=== PATIENT | male | born 1960 | race African-American/Black ===

== ENCOUNTER → 2018-05-25 | Outpatient (CLI) | payer BC ==
[2015-05-06 22:59] VITALS: BP 165/99
[~2018-05-25] MED LIST: OLME20TA17 PO
--- NOTE | 2018-05-25 13:30 | RAD ---
EXAM: Abdomen and pelvis CT without intravenous contrast. HISTORY: Right flank pain. TECHNIQUE: Computed tomographic images of the abdomen and pelvis were obtained without contrast. Multiplanar reformatting was performed. *One or more of the following individualized dose reduction techniques were utilized for this examination: 1. Automated exposure control. 2. Adjustment of the mA and/or kV according to patient size. 3. Use of iterative reconstruction technique. COMPARISON: None. FINDINGS: Evaluation of the lower thorax demonstrates posterior dependent atelectasis. There is a suspected tiny cyst within the anterior right hepatic lobe. No suspicious hepatic lesion is seen. The gallbladder, pancreas, spleen and adrenal glands is unremarkable. There is a 1 mm nonobstructing stone within the lower pole of the left kidney. There is minimal nonspecific bilateral perinephric stranding. The right renal collecting system is slightly prominent. However, there is no evidence of obstructive uropathy. The appendix is normal in caliber. No abnormally thickened or dilated loop of bowel is seen. There is distal colonic diverticulosis. There is no evidence of diverticulitis. The bladder is nearly empty. The aorta is normal in caliber. There is no lymphadenopathy. There are few benign bone islands. There is no suspicious osseous lesion. IMPRESSION: 1. No acute abdominal or pelvic finding. 2. 1 mm nonobstructing left renal stone. 3. Colonic diverticulosis. Electronically signed by: Delmy Desai MD (05/25/2018 1:26 PM) [place] [id number]
== END | disposition home or self-care (01) ==
LOC: CT 12:50
PROVIDERS: ATTEND Family Medicine
DX: N20.0 Calculus of kidney (principal); K57.30 Diverticulosis of large intestine without perforation or abscess without bleeding; J98.11 Atelectasis
CPT/HCPCS: 74176

== ENCOUNTER → 2019-08-06 | Outpatient (CLI) | payer BC ==
[2015-05-06 22:59] VITALS: BP 165/99
[2019-08-06 09:13] LABS: BILIRUBIN,URINE NEG (NEG); CLARITY,URINE CLEAR; COLOR,URINE YELLOW; GLUCOSE,URINE NEG (NEG); NITRITE,URINE NEG (NEG); UROBILINOGEN,URINE 0.2 mg/dL (0.2 mg/dL)
== END | disposition home or self-care (01) ==
LOC: LAB 08:35
PROVIDERS: ATTEND Physician Assistant
DX: R30.9 Painful micturition, unspecified (principal)
CPT/HCPCS: 81003

== ENCOUNTER 2020-02-14 06:01 | Emergency (ER) | payer BC ==
[~2020-02-14] VITALS: Ht 185.4 cm; Wt 86.0 kg
[2020-02-14] MEDS ORDERED: IV NORMAL SALINE 1,000ML 1,000 ML IV SCH (06:32)
[2020-02-14] MEDS ORDERED: CONTRAST GIVEN. MC PRN (06:45)
[2020-02-14 06:47] LABS: BASO # 0.1 x10^3/uL (0.0-0.2); BASO % 1 % (0-3); EOS # 0.1 x10^3/uL (0.0-0.7); EOS % 1 % (0-3); HEMATOCRIT 44.9 % (39.0-53.0); HEMOGLOBIN 14.8 g/dL (13.0-17.5); LYMPH # 1.1 x10^3/uL (1.0-4.8); LYMPH % 11 % (24-48); MEAN CORPUSCULAR HEMOGLOBIN 30 pg (25-35); MEAN CORPUSCULAR HGB CONC 33 g/dL (31-37); MEAN CORPUSCULAR VOLUME 90 fL (79-100); MONO # 0.5 x10^3/uL (0.0-1.1); MONO % 5 % (0-9); NEUT # 8.2 x10^3uL (1.8-7.7); NEUT % 82 % (31-73); PLATELET COUNT 175 x10^3/uL (140-400); RED BLOOD COUNT 4.97 x10^6/uL (4.30-5.70); RED CELL DISTRIBUTION WIDTH 14.2 % (11.5-14.5)
[2020-02-14 06:57] LABS: CALCIUM 9.5 mg/dL (8.5-10.1); CREATININE 1.3 mg/dL (0.7-1.3); GFR 68.1; POTASSIUM 4.1 mmol/L (3.5-5.1)
--- NOTE | 2020-02-14 06:59 | EKG ---
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
[2020-02-14] MEDS ORDERED: LIDO:MAALOX 1:1 20 ML SINGLE DOSE. PO ONE (07:00)
[2020-02-14] MEDS ORDERED: IOHEXOL 300 MG/ML 75 ML VIAL. IV ONE (07:00)
[2020-02-14 07:04] LABS: ALBUMIN 3.9 g/dL (3.4-5.0); DIRECT BILIRUBIN 0.1 mg/dL (0.0-0.2); TOTAL BILIRUBIN 0.3 mg/dL (0.2-1.0); TOTAL PROTEIN 7.4 g/dL (6.4-8.2)
--- NOTE | 2020-02-14 07:13 | PHYS DOC ---
Past History Past Medical History: Hypertension, Other Additional Past Medical Histor: prostate cancer Past Surgical History: Other Additional Past Surgical Histo: prostectomy Alcohol Use: Rarely Drug Use: None General Adult EDM: Chief Complaint: GI PROBLEM HPI: HPI: 59-year-old male past medical history significant for hypertension, prostate cancer with prostatectomy approximately 10 years ago (in remission) and osteoarthritis of left shoulder, presents to the ED with complaints of diffuse abdominal pain stating " I feel like I have a blockage in my intestines" that started around 1 AM last night immediately after eating ice cream. Patient states he did eat greasy iram greens earlier in the night. No relief with Colace, Pepto-Bismol and milk of magnesia. Did have 1 regular bowel movement and frequent belching (brown color) at onset of pain. Reports associated diffuse bloating and abdominal distention-states "my abs are usually flat and tight and they're sticking out now." Abdominal pain initially located around umbilicus but is now diffuse, pain is not a severe at initial presentation. Past surgical history of exploratory laparotomy at 11 years of age due to gastric ulcer-does not recall any history of blood transfusions. Review of Systems: Review of Systems: Constitutional: Denies fever or chills Eyes: Denies change in visual acuity HENT: Denies nasal congestion or sore throat Respiratory: Denies cough or shortness of breath or hemoptysis Cardiovascular: Denies chest pain or edema GI: Denies nausea, vomiting, bloody stools or diarrhea, melena, hematochezia, hematemesis : Denies dysuria or hematuria Musculoskeletal: Denies back pain or joint pain Integument: Denies rash Neurologic: Denies headache, focal weakness or sensory changes or neck stiffness Endocrine: Denies polyuria or polydipsia Lymphatic: Denies swollen glands Psychiatric: Denies depression or anxiety Heart Score: Risk Factors: Risk Factors: DM, Current or recent (<one month) smoker, HTN, HLP, family history of CAD, obesity. Risk Scores: Score 0 - 3: 2.5% MACE over next 6 weeks - Discharge Home Score 4 - 6: 20.3% MACE over next 6 weeks - Admit for Clinical Observation Score 7 - 10: 72.7% MACE over next 6 weeks - Early Invasive Strategies Current Medications: Current Meds: Current Medications Medications (Trade) Dose Ordered Sig/Deja Start Time Stop Time Status Last Admin Dose Admin Info (Do NOT chart on this entry -- for MONITORING) 1 each PRN DAILY PRN 02/14/20 06:45 02/16/20 06:44 Iohexol (Omnipaque 300 Mg/ml) 75 ml 1X ONCE 02/14/20 07:00 02/14/20 07:01 DC Multi-Ingredient Mouthwash/Gargle (Gi Cocktail) 20 ml 1X ONCE 02/14/20 07:00 02/14/20 07:01 DC 02/14/20 06:58 20 ML Sodium Chloride 1,000 ml @ 1,000 mls/hr Q1H 02/14/20 06:32 02/14/20 07:31 02/14/20 06:58 1,000 MLS/HR Allergies: Allergies: Allergies Coded Allergies Type Severity Reaction Last Updated Verified No Known Drug Allergies 05/06/15 No Physical Exam: PE: Constitutional: Well developed, well nourished, physically fit/tall AA male, non-toxic appearance. [] HENT: Normocephalic, atraumatic, bilateral external ears normal, oropharynx moist, no oral exudates, nose normal. [] Eyes: EOMI, conjunctiva normal, no discharge. [] Neck: Normal range of motion, supple, n Cardiovascular:Heart rate regular rhythm, no murmur [] Lungs & Thorax: Bilateral breath sounds clear to auscultation [] Abdomen: Bowel sounds hyperactive, large vertical abdominal scar, patient more tender in left lower quadrant and left upper quadrant, well defined abdominal muscles, slight distention, no Murphsy sign, no pain at McBurney's point, soft, no masses, no pulsatile masses. [] Skin: Warm, dry, no erythema, no rash. [] Back: No tenderness, no CVA tenderness. [] Extremities: No tenderness, no cyanosis, no clubbing, ROM intact, no edema. [] Neurologic: Alert and oriented X 3, normal motor function, normal sensory function, no focal deficits noted. [] Psychologic: Affect normal, judgement normal, mood normal. [] Current Patient Data: Labs: Laboratory Tests Test 02/14/20 06:30 White Blood Count 10.0 x10^3/uL (4.0-11.0) Red Blood Count 4.97 x10^6/uL (4.30-5.70) Hemoglobin 14.8 g/dL (13.0-17.5) Hematocrit 44.9 % (39.0-53.0) Mean Corpuscular Volume 90 fL (79-100) Mean Corpuscular Hemoglobin 30 pg (25-35) Mean Corpuscular Hemoglobin Concent 33 g/dL (31-37) Red Cell Distribution Width 14.2 % (11.5-14.5) Platelet Count 175 x10^3/uL (140-400) Neutrophils (%) (Auto) 82 % (31-73) H Lymphocytes (%) (Auto) 11 % (24-48) L Monocytes (%) (Auto) 5 % (0-9) Eosinophils (%) (Auto) 1 % (0-3) Basophils (%) (Auto) 1 % (0-3) Neutrophils # (Auto) 8.2 x10^3uL (1.8-7.7) H Lymphocytes # (Auto) 1.1 x10^3/uL (1.0-4.8) Monocytes # (Auto) 0.5 x10^3/uL (0.0-1.1) Eosinophils # (Auto) 0.1 x10^3/uL (0.0-0.7) Basophils # (Auto) 0.1 x10^3/uL (0.0-0.2) Sodium Level 138 mmol/L (136-145) Potassium Level 4.1 mmol/L (3.5-5.1) Chloride Level 103 mmol/L (98-107) Carbon Dioxide Level 25 mmol/L (21-32) Anion Gap 10 (6-14) Blood Urea Nitrogen 33 mg/dL (8-26) H Creatinine 1.3 mg/dL (0.7-1.3) Estimated GFR (Cockcroft-Gault) 68.1 Glucose Level 179 mg/dL (70-99) H Calcium Level 9.5 mg/dL (8.5-10.1) Total Bilirubin Pending Direct Bilirubin Pending Aspartate Amino Transferase (AST) Pending Alanine Aminotransferase (ALT) Pending Alkaline Phosphatase Pending Creatine Kinase Pending Total Protein Pending Albumin Pending Lipase Pending Vital Signs: Vital Signs Date Time Temp Pulse Resp B/P (MAP) Pulse Ox O2 Delivery O2 Flow Rate FiO2 02/14/20 06:05 97.7 91 18 162/102 (122) 96 Room Air EKG: EKG: Sinus rhythm at 88 bpm, no axis deviation, normal intervals, no T wave inversions, no ST elevations or ST depressions Radiology/Procedures: Radiology/Procedures: IMAGING REPORT Signed PATIENT: APPLE CARROLL ACCOUNT: [id number] : 1960 LOCATION: ER AGE: 59 SEX: M EXAM STATUS: REG ER ORD. PHYSICIAN: KARLO MEZA DO REASON: periumbilical abd pain, constipation, diarrhea, bloating PROCEDURE: CT ABD PELV W/ IV CONTRST ONLY EXAM: CT Abdomen and Pelvis with IV contrast INDICATION: Reason: periumbilical abd pain, constipation, diarrhea, bloating / Spl. Instructions: GFR 59/ CREAT 1.3- reduced dose to 60ml Omni 300 / History: TECHNIQUE: Multi-detector row CT images were acquired from the lung bases through the abdomen and pelvis with the use of IV contrast. Sagittal and coronal images were acquired from the transaxial data. All CT scans performed at this facility utilize dose optimization techniques as appropriate to the exam, including the following: Automated exposure control and adjustment of the mA and/or KV according to patient size (this includes techniques or standardized protocols for targeted exams where dose is indication/reason for exam). IV CONTRAST: Administered ORAL CONTRAST: Not administered COMPARISON: 05/25/[address] without IV contrast FINDINGS: LOWER CHEST: Unremarkable LIVER: Unremarkable BILIARY SYSTEM: Gallbladder is unremarkable. Bile ducts are not dilated. PANCREAS: Unremarkable SPLEEN: Unremarkable ADRENALS: Unremarkable KIDNEYS & URETERS: Unremarkable BLADDER: Unremarkable REPRODUCTIVE ORGANS: Surgical changes from prostatectomy are redemonstrated. There is suggestion of a small right hydrocele that is new in the interval. GASTROINTESTINAL: No findings of bowel perforation or acute inflammation. There is fluid within multiple loops of small bowel which appear nondistended as well as fluid throughout the visualized large bowel. Scattered colonic diverticuli are present without findings of acute diverticulitis. No obvious findings of obstruction. The appendix is normal. MESENTERY/PERITONEUM/RETROPERITONEUM: Unremarkable VASCULAR: Unremarkable LYMPH NODES: No adenopathy OSSEOUS & SOFT TISSUES: Unremarkable IMPRESSION: Fluid-filled bowel loops in a pattern suggesting an enteritis. No findings suspicious for bowel obstruction, perforation or acute inflammation. No findings of acute appendicitis. Electronically signed by: Reid Trejo MD (02/14/2020 8:12 AM) [id number] Course & Med Decision Making: Course & Med Decision Making Pertinent Labs and Imaging studies reviewed. (See chart for details) CT concerning for fluid-filled nondistended bowel loops, likely resembling enter itis. No signs of appendicitis or bowel obstruction. Vascular unremarkable. New small right hydrocele (pt with no pain). Patient afebrile with asymptomatic hypertension -troponin negative. Has no active chest pain, difficulties breathing or confusion. CK and glucose are elevated. Normal renal function. No leukocytosis. Normal lipase. Patient was treated with IV fluids and GI cocktail in the ED and states his pain has improved since initial onset. Patient with no active vomiting or diarrhea. Discussed findings with pt - educated he will need to repeat his glucose with pmd. Will give referral to GI is sxs should persist. Strict ED return precautions were given for severe or worsening abdominal pain (obstructive sxs), bloody stools, syncope, dehydration or fever. Will treat conservatively with [id number] analgesia, rest and oral hydration. Encouraged urgent outpatient follow-up with PMD and GI. Life- threatening processes were considered but are low suspicion at this time, given history and physical exam. Pt was educated on all prescription medications and adverse effects. All patient's questions were answered and pt was stable at time of discharge. Differential includes aortic dissection, aortic aneurysm, acute coronary syndrome, surgical abdomen (appendicitis, cholecystitis, ischemic bowel, strangulated hernia, etc), bowel obstruction or volvulus, bladder outlet ob struction, gastrointestinal bleeding, inflammatory bowel disease, peptic ulcer disease, sepsis, diverticular disease, ureterolithiasis, nephrolithiasis, testicular torsion, infection I spoken with the patient and her caregivers. I explained the patient's condition, diagnoses and treatment plan based on the information available to me at this time. I have answered the patient and her caregiver's questions and addressed any concerns. The patient and her caregivers have a good understanding of patient's diagnosis, condition and treatment plan as can be expected at this point. Vital signs have been stable. Patient's condition is stable and appropriate for discharge from the emergency department. Patient will pursue further outpatient evaluation with primary care physician or other designated or consulting physician as outlined in the discharge instructions. The patient and/or caregivers are agreeable to this plan of care and follow-up instructions have been explained in detail. The patient and/or caregivers have received these instructions in written form and have expressed an understanding of the discharge instructions. The patient and/or caregivers are aware that any significant change of condition or worsening of symptoms should prompt immediate return to this or the closest emergency department or call to 911. Amara Disclaimer: Amara Disclaimer: This electronic medical record was generated, in whole or in part, using a voice recognition dictation system. Departure Departure: Impression: Primary Impression: Abdominal pain Additional Impression: Enteritis Disposition: HOME/RESIDENCE PRIOR TO ADM Condition: STABLE Referrals: BOB RODRIGUEZ (PCP) Patient Instructions: Abdominal Pain, Diverticulosis Additional Instructions: [address], [address], [facility] -in 1-2 [place] [address] EMERGENCY DEPARTMENT GENERAL DISCHARGE INSTRUCTIONS Thank you for coming to [facility] (ED) today and trusting us with you care. We trust that you had a positivie experience in our Emergency Department. If you wish to speak to the department management, you may call the director at [phone]. YOUR FOLLOW UP INSTRUCTIONS ARE FOLLOWS: 1. Do you have a private Doctor? If you do not have a private doctor, please ask for a resource list of physicians or clinics that may be able to assist you with follow up care. 2. The Emergency Physician has interpreted your x-rays. The X-Ray specialist will also review them. If there is a change in the findings, you will be notified in 48 hours when at all possible. 3. A lab test or culture has been done, your results will be reviewed and you will be notified if you need a change in treatment. ADDITIONAL INSTRUCTIONS AND INFORMATION: 1. Your care today has been supervised by a physician who is specially trained in emergency care. Many problems require more than one evaluation for a complete diagnosis and treatment. We recommend that you schedule your follow up appointment as recomme nded to ensure complete treatment of you illness or injury. If you are unable to obtain follow up care and continue to have a problem, or if your condition worsens, we recommend that you return to the ED. 2. We are not able to safely determine your condition over the phone nor are we able to give sound medical advice over the phone. For these safety reasons, if you call for medical advice we will ask you to come to the ED for further evaluation. 3. If you have any questions regarding these discharge instructions please call the ED at [phone]. SAFETY INFORMATION: In the interest of safety, wellness, and injury prevention; we encourage you to wear your sealbelt, if you smoke; quite smoking, and we encourage family to use a protective helmet for bicycling and other sporting events that present an increased risk for head injury. IF YOUR SYMPTOMS WORSEN OR NEW SYMPTOMS DEVELOP, OR YOU HAVE CONCERNS ABOUT YOUR CONDITION; OR IF YOUR CONDITION WORSENS WHILE YOU ARE WAITING FOR YOUR FOLLOW UP APPOINTMENT; EITHER CONTACT YOUR PRIMARY CARE DOCTOR, THE PHYSICIAN WHOSE NAME AND NUMBER YOU WERE GIVEN, OR RETURN TO THE ED IMMEDIATELY. Scripts Simethicone (Simethicone) 125 Mg Capsule 125 MG PO QID for gas/bloating for 4 Days, #16 CAP Prov: KARLO MEZA DO 02/14/20 Justification of Admission: Justification of Admission: Justification of Admission Dx: N/A KARLO MEZA DO Feb 14, 2020 07:13
--- NOTE | 2020-02-14 08:15 | RAD ---
EXAM: CT Abdomen and Pelvis with IV contrast INDICATION: Reason: periumbilical abd pain, constipation, diarrhea, bloating / Spl. Instructions: GFR 59/ CREAT 1.3- reduced dose to 60ml Omni 300 / History: TECHNIQUE: Multi-detector row CT images were acquired from the lung bases through the abdomen and pelvis with the use of IV contrast. Sagittal and coronal images were acquired from the transaxial data. All CT scans performed at this facility utilize dose optimization techniques as appropriate to the exam, including the following: Automated exposure control and adjustment of the mA and/or KV according to patient size (this includes techniques or standardized protocols for targeted exams where dose is indication/reason for exam). IV CONTRAST: Administered ORAL CONTRAST: Not administered COMPARISON: 05/25/[address] without IV contrast FINDINGS: LOWER CHEST: Unremarkable LIVER: Unremarkable BILIARY SYSTEM: Gallbladder is unremarkable. Bile ducts are not dilated. PANCREAS: Unremarkable SPLEEN: Unremarkable ADRENALS: Unremarkable KIDNEYS & URETERS: Unremarkable BLADDER: Unremarkable REPRODUCTIVE ORGANS: Surgical changes from prostatectomy are redemonstrated. There is suggestion of a small right hydrocele that is new in the interval. GASTROINTESTINAL: No findings of bowel perforation or acute inflammation. There is fluid within multiple loops of small bowel which appear nondistended as well as fluid throughout the visualized large bowel. Scattered colonic diverticuli are present without findings of acute diverticulitis. No obvious findings of obstruction. The appendix is normal. MESENTERY/PERITONEUM/RETROPERITONEUM: Unremarkable VASCULAR: Unremarkable LYMPH NODES: No adenopathy OSSEOUS & SOFT TISSUES: Unremarkable IMPRESSION: Fluid-filled bowel loops in a pattern suggesting an enteritis. No findings suspicious for bowel obstruction, perforation or acute inflammation. No findings of acute appendicitis. Electronically signed by: Reid Trejo MD (02/14/2020 8:12 AM) [id number]
[2020-02-14] MEDS ORDERED: SIME125C65 PO (08:50)
[2020-02-14 09:07] VITALS: BP 137/80
== END 2020-02-14 09:06 | disposition home or self-care (01) ==
LOC: ER 06:01
DX: K52.9 Noninfective gastroenteritis and colitis, unspecified (principal); I10 Essential (primary) hypertension; M19.012 Primary osteoarthritis, left shoulder; Z85.9 Personal history of malignant neoplasm, unspecified
CPT/HCPCS: 36415; 74177; 80048; 80076; 82550; 83690; 84484; 85025; 93005; 96360; 96361; 99285; J7030; Q9967

== ENCOUNTER → 2020-02-29 | Outpatient (CLI) | payer BC ==
[2020-02-14 09:07] VITALS: BP 137/80
[~2020-02-29] MED LIST changes: +SIME125C65 PO
--- NOTE | 2020-02-29 12:54 | RAD ---
EXAM: 3 Views Left Shoulder DATE: 02/29/2020 12:00 AM INDICATION: Left shoulder pain COMPARISON: 12/02/2013 FINDINGS: There is no evidence for acute fracture or dislocation. The left shoulder joint degenerative change with increased prominence of the inferior projecting glenohumeral osteophytes. Small joint body is suspected superiorly. Acromiohumeral distance is decreased suggesting rotator cuff tendinosis or tear. IMPRESSION: 1. No evidence for acute fracture or dislocation. 2. Progressing left humeral joint osteoarthritis. 3. High riding humeral head suggests rotator cuff tendinosis or tear. Electronically signed by: Eldon Shields MD (02/29/2020 12:50 PM) [id number]
== END ==
LOC: DXRAD 10:08
PROVIDERS: ATTEND Physician Assistant
DX: M19.012 Primary osteoarthritis, left shoulder (principal)
CPT/HCPCS: 73030

== ENCOUNTER → 2020-03-03 | Outpatient (CLI) | payer BC ==
[2020-02-14 09:07] VITALS: BP 137/80
--- NOTE | 2020-03-03 10:02 | RAD ---
Two-view left knee radiographs 03/03/2020 CLINICAL HISTORY: Left knee pain. AP and lateral digital radiographs of the left knee were obtained. No fracture or dislocation of the left knee is seen. Mild degenerative changes are seen involving the medial and patellofemoral compartments of the left knee. These consist of subchondral sclerosis and associated osteophyte formation. There may be a minimal left suprapatellar joint effusion. IMPRESSION: Mild degenerative changes are seen involving the left knee. No acute osseous abnormality is seen. Electronically signed by: Erlin Ruff MD (03/03/2020 9:59 AM) [id number]
== END ==
LOC: PMG 09:19
PROVIDERS: ATTEND Physician Assistant
DX: M17.12 Unilateral primary osteoarthritis, left knee (principal)
CPT/HCPCS: 73560

== ENCOUNTER → 2021-04-04 | Outpatient (CLI) | payer BC ==
--- NOTE | 2021-04-04 11:25 | RAD ---
EXAM: Cervical spine, 4 views. HISTORY: Pain. COMPARISON: None. FINDINGS: 4 views of the cervical spine are obtained. There is mild multilevel degenerative listhesis . There is endplate remodeling with disc space narrowing and osteophytosis at C3-C7. There is multile lisa facet arthropathy. There is a shoulder arthroplasty. IMPRESSION: Multilevel degenerative change of the cervical spine, described above. No acute osseous f inding. Electronically signed by: Delmy Desai MD (04/04/2021 11:23 AM) [id number]
== END ==
LOC: RAD 10:37
PROVIDERS: ATTEND Nurse Practitioner Family
DX: M47.812 Spondylosis without myelopathy or radiculopathy, cervical region (principal); M48.02 Spinal stenosis, cervical region; M48.8X2 Other specified spondylopathies, cervical region; M43.12 Spondylolisthesis, cervical region; M25.78 Osteophyte, vertebrae; Z98.890 Other specified postprocedural states
CPT/HCPCS: 72040

== ENCOUNTER 2021-09-22 01:22 | Emergency (ER) | payer BC ==
[~2021-09-22] VITALS: Ht 185.4 cm; Wt 86.0 kg
[2021-09-22 01:33] VITALS: BP 144/95
[2021-09-22] MEDS ORDERED: AMOX1TAB11 PO (01:48)
--- NOTE | 2021-09-22 01:48 | PHYS DOC ---
Past History Past Medical History: Hypertension, Other Additional Past Medical Histor: prostate cancer Past Surgical History: Other Additional Past Surgical Histo: prostectomy Alcohol Use: Rarely Drug Use: None General Adult EDM: Chief Complaint: DENTAL PROBLEM HPI: HPI: 61-year-old male presents with left foot for dental pain. The patient has been having worsening pain for couple of days. It has become sore to swallow and chew on that side. He feels like the gums inside of the teeth are almost sore. They feel swollen when he feels move his tongue. He has several days of 12-hour shifts coming up and thought he should come and certainly get worse. Patient does have an appointment with an oral surgeon on . He just wants to see if it is infected. Review of Systems: Review of Systems: Constitutional: Denies fever or chills Eyes: Denies change in visual acuity HENT: Left lower dental pain Respiratory: Denies cough or shortness of breath Cardiovascular: Denies chest pain or edema GI: Denies abdominal pain, nausea, vomiting, bloody stools or diarrhea : Denies dysuria Musculoskeletal: Denies back pain or joint pain Integument: Denies rash Neurologic: Denies headache, focal weakness or sensory changes Endocrine: Denies polyuria or polydipsia Lymphatic: Denies swollen glands Psychiatric: Denies depression or anxiety Allergies: Allergies: Allergies Coded Allergies Type Severity Reaction Last Updated Verified No Known Drug Allergies 05/06/15 No Physical Exam: PE: Constitutional: Well developed, well nourished, no acute distress, non-toxic appearance. [] HENT: Normocephalic, atraumatic, bilateral external ears normal, tenderness of the left, lower, medial gumline. No palpable abscess. [] Eyes: PERRLA, EOMI, conjunctiva normal, no discharge. [] Neck: Normal range of motion, no tenderness, supple, no stridor. [] Cardiovascular:Heart rate regular rhythm, no murmur [] Lungs & Thorax: Bilateral breath sounds clear to auscultation [] Abdomen: Bowel sounds normal, soft, no tenderness, no masses, no pulsatile masses. [] Skin: Warm, dry, no erythema, no rash. [] Back: No tenderness, no CVA tenderness. [] Extremities: No tenderness, no cyanosis, no clubbing, ROM intact, no edema. [] Neurologic: Alert and oriented X 3, normal motor function, normal sensory fun ction, no focal deficits noted. [] Psychologic: Affect normal, judgement normal, mood normal. [] Current Patient Data: Vital Signs: Vital Signs Date Time Temp Pulse Resp B/P (MAP) Pulse Ox O2 Delivery O2 Flow Rate FiO2 09/22/21 01:33 97.8 83 18 144/95 (111) 96 Room Air EKG: EKG: [] Radiology/Procedures: Radiology/Procedures: [] Heart Score: C/O Chest Pain: N/A Risk Factors: Risk Factors: DM, Current or recent (<one month) smoker, HTN, HLP, family history of CAD, obesity. Risk Scores: Score 0 - 3: 2.5% MACE over next 6 weeks - Discharge Home Score 4 - 6: 20.3% MACE over next 6 weeks - Admit for Clinical Observation Score 7 - 10: 72.7% MACE over next 6 weeks - Early Invasive Strategies Course & Med Decision Making: Course & Med Decision Making Pertinent Labs and Imaging studies reviewed. (See chart for details) The patient does not have a palpable, obvious abscess. Given his tenderness and history he could be developing dental infection. I will treat him with Augmentin for 7 days. He will keep his appointment with the oral surgeon. He is stable for discharge at this time. [] Amara Disclaimer: Amara Disclaimer: This electronic medical record was generated, in whole or in part, using a voice recognition dictation system. Departure Departure: Impression: Primary Impression: Dental infection Disposition: HOME / SELF CARE / HOMELESS Condition: STABLE Referrals: BOB RODRIGUEZ (PCP) Patient Instructions: Dental Pain, [id number] Scripts Amoxicillin/Potassium Clav (AMOX TR-K CLV 875-125 MG TAB) 1 Each Tablet 1 TAB PO BID for dental infection for 7 Days, #14 TAB Prov: LOUISA SAUER DO 09/22/21 LOUISA SAUER DO September 22, 2021 01:48
[2021-09-22] MEDS ORDERED: AMOXICILLIN/K CLAV 875/125MG TABLET. ONE (01:50)
[2021-09-22] MEDS ORDERED: AMOXICILLIN/K CLAV 875/125MG TABLET. PO ONE (02:00)
== END 2021-09-22 01:54 | disposition home or self-care (01) ==
LOC: ER 01:22
DX: K04.7 Periapical abscess without sinus (principal); I10 Essential (primary) hypertension
CPT/HCPCS: 99283